=== PATIENT | male | born 2000 | race Hispanic/Latino ===

== ENCOUNTER 2023-12-31 13:05 | Emergency (ER) | payer OTHER ==
[~2023-12-31] VITALS: Ht 188 cm; Wt 98.4 kg
[2023-12-31 13:10] VITALS: PULSE 79; RESP 18; TEMP 97.4
[2023-12-31] MEDS ORDERED: BACTRIM DS TAB1 EACH PO (14:34)
[2023-12-31 14:58] VITALS: BP 119/84; PULSE 74; RESP 18; TEMP 98.3; O2SAT 100
== END 2023-12-31 14:40 | disposition home or self-care (01) ==
LOC: FSED 13:15
DX: L05.01 Pilonidal cyst with abscess (principal)
CPT/HCPCS: 99283